=== PATIENT | female | born 1950 | race Caucasian/White ===

== ENCOUNTER 2016-05-17 19:12 | Emergency (ER) | payer MEDICAID, MEDICARE | END 2016-05-17 21:50 | disposition home or self-care (01) | LOC: ER 19:12 | DX: S52.602A Unspecified fracture of lower end of left ulna, initial encounter for closed fracture (principal); S00.03XA Contusion of scalp, initial encounter; W18.39XA Other fall on same level, initial encounter; Y92.002 Bathroom of unspecified non-institutional (private) residence as the place of occurrence of the external cause; E11.9 Type 2 diabetes mellitus without complications; Z79.4 Long term (current) use of insulin; I50.9 Heart failure, unspecified | CPT/HCPCS: 70450 ==